=== PATIENT | male | born 1975 | race Caucasian/White ===

== ENCOUNTER 2020-10-23 23:08 | Emergency (ER) | payer OTHER ==
[~2020-10-23 23:08] MED LIST: BACTRIM DS TAB1 EACH PO; CELEXA40 MG PO; WELLBUTRIN SR200 MG PO
== END 2020-10-24 02:51 | disposition left against medical advice (07) ==
LOC: FER 23:08
DX: S00.83XA Contusion of other part of head, initial encounter (principal); S00.03XA Contusion of scalp, initial encounter; Y35.819A Legal intervention involving manhandling, unspecified person injured, initial encounter
CPT/HCPCS: 70450; 70486; J1885